=== PATIENT | male | born 1965 | race African-American/Black ===

== ENCOUNTER → 2019-09-03 | Day surgery (SDC) | payer OTHER ==
--- NOTE | 2019-09-03 14:39 | RADIOLOGY REPORT (SQ) ---
EXAM DESCRIPTION: ARTHRO SHOULDER INJECTION; FLUORO/NEEDLE PLACEMENT IMAGES COMPLETED DATE/TIME: 09/03/2019 2:19 pm REASON FOR STUDY: M13.811 OTHER SPECIFIED ARTHRITIS, RIGHT SHOULDER M13.811 OTHER SPECIFIED ARTHRIT IS, RIGHT SHOULDER COMPARISON: None. FLUOROSCOPY TIME: 0.2 minutes 2 images saved to PACS. LIMITATIONS: None. PROCEDURE: Procedure, risks, benefits and alternatives explained to patient who then gave written co nsent. The right shoulder was marked and a time out was called for correct procedure verification. P osterior entry site marked using fluoroscopic guidance. Shoulder prepped and draped using sterile te chnique. Local anesthesia achieved using 6 mL of 1% lidocaine injection. Hypodermic needle introduc ed into the joint space under direct fluoroscopic visualization. Non-ionic contrast instilled to conf irm intra-articular position. Dilute gadolinium solution then injected. Needle removed and entry sit e covered with sterile bandage. No immediate complications noted. TECHNIQUE: Digital images acquired during fluoroscopy and stored on PACS. Patient immediately take n to the MR suite for additional imaging. INJECTION LOCATION: Posterior right shoulder. CONTRAST TYPE AND AMOUNT: 1 mL Omnipaque 300 IMPRESSION: SUCCESSFUL NEEDLE PLACEMENT AND INJECTION FOR RIGHT SHOULDER CT ARTHROGRAM USING POSTERI OR APPROACH. COMMENT: Quality ID 145: Final reports for procedures using fluoroscopy that document radiation exp osure indices, or exposure time and number of fluorographic images (if radiation exposure indices are not available) TECHNICAL DOCUMENTATION: JOB ID: [id number] 2010 [employer]- All Rights Reserved Reading location - IP/workstation name: [email or web address]
--- NOTE | 2019-09-04 13:45 | RADIOLOGY REPORT (SQ) ---
EXAM DESCRIPTION: CT RT UPPER EXTREMITY WITH IMAGES COMPLETED DATE/TIME: 09/03/2019 3:11 pm REASON FOR STUDY: M13.811 OTHER SPECIFIED ARTHRITIS, RIGHT SHOULDER M13.811 OTHER SPECIFIED ARTHRIT IS, RIGHT SHOULDER COMPARISON: None. TECHNIQUE: Axial imaging performed through the rightshoulder with reformatted oblique coronal and ob lique sagittal imaging windowed for bone and soft tissues. All CT scanners at this facility use dose modulation, iterative reconstruction, and/or weight based d osing when appropriate to reduce radiation dose to as low as reasonably achievable (ALARA). [facility]: Dose Right [facility]: CareDose [facility]: Dose Right [facility]: Teradose 4D [facility]: Vital Access RADIATION DOSE: CT Rad equipment meets quality standard of care and radiation dose reduction techniq ues were employed. CTDIvol: 12.4 mGy. DLP: 246 mGy-cm. mGy. LIMITATIONS: None. FINDINGS: There is adequate intra-articular contrast. Cuff musculature is symmetric. No contrast i n the subacromial bursa. No obvious labral tear. Mild degenerative changes in the glenohumeral and AC joints. Type 1 acromion. IMPRESSION: Mild degenerative changes. No rotator cuff tear identified. TECHNICAL DOCUMENTATION: JOB ID: [id number] Quality ID # [id number]: Final reports with documentation of one or more dose reduction techniques (e.g., Au tomated exposure control, adjustment of the mA and/or kV according to patient size, use of iterative reconstruction technique) 2010 [employer]- All Rights Reserved Reading location - IP/workstation name: [email or web address]
== END ==
LOC: RAD 13:35
PROVIDERS: ATTEND Orthopaedic Surgery
DX: M13.811 Other specified arthritis, right shoulder (principal)
CPT/HCPCS: 23350; 77002